=== PATIENT | male | born 1970 | race Caucasian/White ===

== ENCOUNTER 2025-04-23 13:05 | Emergency (ER) | payer BC, SELFPAY ==
[2025-04-23 13:11] VITALS: BP 138/94
[2025-04-23 13:32] VITALS: BMI 24.7
[2025-04-23 13:33] VITALS: BP 172/91
--- NOTE | 2025-04-23 13:35 | EDRN ---
Dr. Gayle in room w/pt.
--- NOTE | 2025-04-23 13:38 | ED.GENMED ---
History of Present Illness
General
Chief Complaint: Chest Pain
Source: patient
Time Seen by Provider: 04/23/25 13:28
History of Present Illness
History of Present Illness:
55-year-old male presents to the emergency room complaining of episodic pain in his chest. Patient was seen by his primary care doctor and referred to the emergency room. Over the past 2 weeks the patient has been having episodes of chest
discomfort which seem to occur around noon. He describes it as a heaviness or indigestion type discomfort that is located in his chest just to the left of midline. The discomfort radiates to his left arm and up to his neck and head. He denies
associated shortness of breath, diaphoresis or nausea. Episodes last about 15 minutes and resolved. He is frequently walking when they started and they go away when he rests. Patient is not having any chest discomfort at this time. He denies any
recent travel or periods of immobilization. Patient endorses smoking about a pack a day as well as drinking about 12 beers a day. No recreational drug use.
Past History
Past History
ED Past Medical History: None
ED Past Surgical History: Orthopedic
Phy Exam
Physical Exam
Physical Exam:
General: Awake, Alert, Oriented X3. No acute distress.
Vitals: unremarkable
Head: Atraumatic
Eyes: Pupils equal, EOMI
Throat: Airway intact, no exudates
Neck: Trachea midline
Lungs: Clear and equal b/l
Heart: Regular rate, 2/6 systolic murmurs
Abd: Soft, Nontender, No pulsatile mass
Neuro: Nonfocal
Skin: Warm, dry, no rash
Extremities: pulses equal b/l, no edema
Scores
Heart Score for Chest Pain Patients
STEMI patient?: No
History: Moderately Suspicious
ECG: Normal
Age: >45 - <65 years
Risk Factors: No Risk Factors
Troponin: </= Normal Limit
Heart Score for Chest Pain Patients: 2
Heart Score Risk: 2.5% MACE over next 6 weeks
Course
Orders/Labs/Results
Orders:
Orders
04/23/25 13:05
EKG [Electrocardiogram (*1)] Urgent
Reason for Study: Chest Pain
04/23/25 13:06
EKG- Treatment ONCE
04/23/25 13:34
Cardiac Monitoring- Treatment ONCE
04/23/25 13:35
IV Insert/Care/Rem.- Treatment PRN
04/23/25 13:38
CR Chest - 2 Views Urgent
Comment:
Reason For Exam: chest pain
04/23/25 13:43
Complete Blood Count/With Diff Urgent
Comprehensive Metabolic Panel Urgent
Troponin I Urgent
Abnormal Lab Results
04/23/25
13:43
RBC 4.46 L 10^6/uL
(4.70-6.10)
MCH 32.7 H pg
(27.0-31.0)
Absolute Neuts (auto) 6.7 H 10^3/uL
(1.4-6.5)
Absolute Monos (auto) 1.0 H 10^3/uL
(0.1-0.6)
Sodium 134 L mmol/L
(135-145)
Creatinine 0.6 L mg/dL
(0.7-1.3)
Glucose 168 H mg/dl
(70-99)
04/23/25 13:43
04/23/25 13:43
Vital Signs
Initial and Last Documented VS:
Initial Vital Signs
Temp Pulse Resp BP Pulse Ox
98.9 F 104 18 138/94 98
04/23/25 13:11 04/23/25 13:11 04/23/25 13:11 04/23/25 13:11 04/23/25 13:11
Last Documented Vital Signs
Temp Pulse Resp BP Pulse Ox
98.9 F 74 19 138/89 97
04/23/25 13:11 04/23/25 15:15 04/23/25 15:15 04/23/25 15:00 04/23/25 14:27
MDM/Problems Addressed
Differential Diagnosis Includes:
Angina, GERD, chest wall pain, PE, pneumothorax
MDM/Problems Addressed:
EKG shows no acute ischemic changes. Labs show normal troponin. Chest x-ray is unremarkable. Patient has remained comfortable here in the emergency room. Patient's chest discomfort has been present for 2 weeks. Discomfort today has been present
for several hours. Therefore single troponin is adequate. Patient stable for discharge home and outpatient follow-up. Placed on the chest pain hotline
Chronic conditions affecting care: HTN
*Radiology
Radiology exam reviewed: preliminary read by ED provider (No acute abnormality on my review of the chest x-ray)
*Pulse Oximetry
SaO2: 98
Oxygen Mode of Delivery: Room air
Patient hypoxic: no
*EKG
Interpreted by ED Provider?: Yes
Heart Rate: 111
Rate: tachycardiac
Rhythm: sinus tachycardia
[place]: normal axis
Interval: normal interval
QRS Pattern: normal QRS
Ischemia: no ischemia
*[employer] Interpretation
Rate: tachycardiac
Interpretation: abnormal
Rhythm: sinus tachycardia
*Critical Care Note
Total Time (30-74mins, 75-104mins- exclusive of procedures): Not Applicable
ED Attending Note
-
Portions of this chart may have been created with voice recognition software.� Occasional wrong word or��sound alike� substitutions may have occurred due to the inherent limitations of voice recognition software.
Discharge Plan
Departure
Patient Disposition: Home (Routine Discharge)
Date of Disposition: 04/23/25
Time of Disposition: 15:16
Patient with high blood pressure during this ER visit?: Yes
Condition: Good
Discharge Problem:
Chest pain
Instructions: Chest Pain DCA Follow Up
Prescriptions:
No Action
amoxicillin-pot clavulanate 875-125 mg tablet
1 tab PO BID Qty: 20 0RF
Referrals:
Magan Farah MD [Active, Cardiology]
Rose Meraz PA-C [Family Provider, Family Practice]
Activity Restrictions/Additional Instructions:
take a baby aspirin a day until you see the train station server. Return if you feel your symptoms are getting worse.
Interventions
Interventions:
*Risk Screen - Suicide Last Done: 04/23/25 13:11
*General Assessment Last Done: 04/23/25 13:11
*Neglect/Abuse Screening Last Done: 04/23/25 13:11
*ED- Fall Risk Assessment Last Done: 04/23/25 13:11
*ED COVID-19 Vaccine History Last Done: 04/23/25 13:11
*Nursing Disposition Last Done: 04/23/25 15:36
ED- Cardiac Assessment Last Done: 04/23/25 13:47
Discharge Date and Time
Discharge Date/Time: 04/23/25 15:38
Print Language: NEPALESE
[2025-04-23 13:52] LABS: % Basophils 0.8 % (0-2); % Eosinophils 2.1 % (0-6); % Immature Granulocytes 0.3 % (0-0.5); % Lymphocytes 23.3 % (20.5-51.1); % Monocytes 9.3 % (1.7-9.3); % Neutrophils 64.2 % (42.2-75.2); Absolute Basophils 0.1 10^3/uL (0-0.2); Absolute Eosinophils 0.2 10^3/uL (0-0.7); Absolute Lymphocytes 2.4 10^3/uL (1.2-3.4); Absolute Neutrophils 6.7 10^3/uL (1.4-6.5); Hematocrit 40.2 % (39.0-52.0); Hemoglobin 14.6 g/dL (13.0-18.0); Mean Corp Hgb Conc. 36.3 g/dL (33.0-37.0); Mean Corpuscular Hgb 32.7 pg (27.0-31.0); Mean Corpuscular Volume 90.1 fL (80.0-94.0); Mean Platelet Volume 8.4 fL (7.4-10.4); Nucleated Red Blood Cells % 0 % (-); Platelet Count 247 10^3/uL (130-400); Red Blood Cell Count 4.46 10^6/uL (4.70-6.10); Red Cell Dist. Width 13.2 % (11.5-14.5); White Blood Cell Count 10.4 10^3/uL (4.8-10.8)
[2025-04-23 14:00] VITALS: BP 134/83
[2025-04-23 14:19] LABS: ALT (SGPT) 17 U/L (0-50); AST (SGOT) 24 U/L (17-59); Albumin 4.5 g/dl (3.5-5.0); Alkaline Phosphatase 50 U/L (38-126); Blood Urea Nitrogen 11 mg/dl (9-20); Calcium 9.6 mg/dl (8.4-10.2); Carbon Dioxide 24 mmol/L (22-30); Chloride 104 mmol/L (98-107); Estimated Creatinine Clearance > 125 ml/min; Glucose 168 mg/dl (70-99); Potassium 4.2 mmol/L (3.5-5.1); Sodium 134 mmol/L (135-145); Total Bilirubin 0.5 mg/dl (0.2-1.3); Total Protein 7.4 g/dl (6.3-8.2); eGFR > 60.00
[2025-04-23 14:24] VITALS: BP 143/96
[2025-04-23 14:29] LABS: Troponin I < 0.012 ng/ml
[2025-04-23 15:00] VITALS: BP 138/89
== END 2025-04-23 15:38 | disposition home or self-care (01) ==
LOC: EMR 13:05
PROVIDERS: EMERGENCY PHYSICIAN Emergency Medicine; FAMILY PHYSICIAN Physician Assistant Medical
DX: R07.89 Other chest pain (principal); I10 Essential (primary) hypertension; F17.210 Nicotine dependence, cigarettes, uncomplicated
CPT/HCPCS: 99283; 71046; 80053; 84484; 85025; 93005; 96374; 96375; 99285